=== PATIENT | male | born 1970 | race Two or more races ===

== ENCOUNTER → 2017-06-25 | Outpatient (REF) | payer BC ==
[~2017-06-25] MED LIST: ESCI10TA2 PO; FENO1CAP2 PO; FLOM5CAP PO; NEXI10GR PO; TYLE650T35 PO
== END ==
LOC: M SMT 13:10
PROVIDERS: ATTEND Nurse Practitioner Women's Health
DX: R31.29 Other microscopic hematuria (principal)

== ENCOUNTER → 2017-07-05 | Outpatient (CLI) | payer BC ==
[~2017-07-05] MED LIST changes: +ISOVUE-370 76% 100ML VIAL (Q9967) As Ordered ONE
--- NOTE | 2017-07-05 18:42 | REP ---
CT ABDOMEN AND PELVIS WITH CONTRAST: HISTORY: Microscopic hematuria. CONTRAST: Isovue-370, 100 mL Calcifications are present in the kidneys consistent with nephrolithiasis. A 1.1 cm cyst is present in the right kidney. The liver, gallbladder, pancreas, spleen and adrenal glands are normal in appearance. Diverticula are present in the descending colon. There is no mass, adenopathy or free fluid. The visualized lungs are clear. IMPRESSION: 1. Bilateral nephrolithiasis. 2. 1.1 cm right renal cyst. 3. Diverticulosis. CT pelvis: The prostate gland and urinary bladder are normal in appearance. Diverticula are present in the descending and sigmoid colon. There is no mass, adenopathy or free fluid. Degenerative change is present in the spine. IMPRESSION: Diverticulosis. Signed by Abhi Plaza MD 07/05/2017 07:45 P
== END ==
LOC: M RAD 16:43
PROVIDERS: ATTEND Nurse Practitioner Women's Health
DX: N20.0 Calculus of kidney (principal); N28.1 Cyst of kidney, acquired; K57.30 Diverticulosis of large intestine without perforation or abscess without bleeding
CPT/HCPCS: 74178; Q9967

== ENCOUNTER → 2017-07-11 | Outpatient (REF) | payer BC ==
[~2017-07-11] MED LIST changes: -ISOVUE-370 76% 100ML VIAL (Q9967) As Ordered ONE
== END ==
LOC: M SMT 19:06
PROVIDERS: ATTEND Nurse Practitioner Women's Health
DX: N20.0 Calculus of kidney (principal)

== ENCOUNTER → 2017-07-18 | Outpatient (CLI) | payer BC ==
[2017-07-18 16:19] LABS: MEAN CORPUSCULAR HEMOGLOBIN 31.3 pg (27.0-33.0); MEAN CORPUSCULAR HGB CONC 35.3 g/dl (32.0-36.5); MEAN CORPUSCULAR VOLUME 88.6 fl (80.0-96.0); RED CELL DISTRIBUTION WIDTH 13.1 % (11.5-14.5); WHITE BLOOD COUNT 5.5 K/mm3 (4.0-10.0)
[2017-07-18 16:25] LABS: INR 0.99
[2017-07-18 18:06] LABS: ANION GAP 9 MEQ/L (8-16); BLOOD UREA NITROGEN 18 MG/DL (7-18); CALCIUM LEVEL 8.8 MG/DL (8.5-10.1); CARBON DIOXIDE LEVEL 26 MEQ/L (21-32); CHLORIDE LEVEL 111 MEQ/L (98-107); CREATININE FOR GFR 1.15 MG/DL (0.70-1.30); GLOMERULAR FILTRATION RATE > 60.0 (>60); GLUCOSE, FASTING 77 MG/DL (70-105); POTASSIUM SERUM 4.3 MEQ/L (3.5-5.1); SODIUM LEVEL 146 MEQ/L (136-145)
== END ==
LOC: M LAB 15:53
PROVIDERS: ATTEND Nurse Practitioner Women's Health
DX: N20.0 Calculus of kidney (principal)

== ENCOUNTER → 2017-07-25 | Day surgery (SDC) | payer BC ==
[~2017-07-25] VITALS: Ht 167.6 cm; Wt 97.1 kg
[~2017-07-25] MED LIST changes: +KETAMINE HCL 200 MG/20 ML VIAL As Ordered ONE; +LIDOCAINE 2% INJ 100 MG/5 ML SDV (FOR ANES.) As Ordered ONE; +LR 1,000 ML IV SCH; +MIDAZOLAM INJ 2 MG/2 ML VIAL (J2250) As Ordered ONE; +ONDANSETRON 4MG/2ML VIAL (J2405) IV PRN; +PERCOCET 5MG/325MG TAB PO PRN; +PROPOFOL 200 MG/20 ML VIAL As Ordered ONE; +fentaNYL 100 MCG/2 ML INJECTION (J3010) As Ordered ONE
--- NOTE | 2017-07-25 08:58 | REP ---
SUPINE ABDOMEN: 07/25/2017. Comparison: CT abdomen and pelvis 07/05/2017. Clinical history: Right-sided kidney stone. Findings: The gas pattern is nonspecific. Bones without acute finding. There is minor degenerative change of the hips, right greater than left. There is a very subtle shadow over the interpolar lower pole junction of the right kidney that could represent a small stone. I do not see other densities that might represent the calcification, this would correspond to the location and size of the stone on CT last month. Expected course of the ureters is without any visible calcification. No pelvic calcification. Impression: 1. Questionable 7 mm density overlying the lower pole right kidney in the precise location and size of a stone noted on the CT last month. The tiny punctate calcification in the left kidney on that CT cannot be seen. Signed by Garry Aguilera MD 07/25/2017 10:23 A
--- NOTE | 2017-07-25 11:30 | RO ---
DATE OF PROCEDURE: 07/25/2017 PREPROCEDURE DIAGNOSIS: Right renal stone. POSTPROCEDURE DIAGNOSIS: Right renal stone. PROCEDURE: Right extracorporal shockwave lithotripsy. SURGEON: Dr. Will Thakur. ASSOCIATE OF SCIENCE IN NURSING: None. ANESTHESIA: General. FINDINGS: 7 mm right renal stone in the lower pole of the kidney. COMPARISON: None. ESTIMATED BLOOD LOSS: N/A HISTORY OF PRESENT ILLNESS: This is a 47-year-old male patient with a right 7 mm lower pole kidney stone with right flank pain. The patient has consented for right extracorporal shockwave lithotripsy. DESCRIPTION OF PROCEDURE: With the patient in supine position under MAC anesthesia, the stone was found with ultrasound x-ray. A total of 2500 shockwave lithotripsy impulses at a power of 1-20. The first 100 shockwave lithotripsies was done at a level of 1-5. The following 100 shockwave lithotripsies were on a level of 6-10. The final 100 shockwave lithotripsies was done at a level 11-15 and the final 2200 shockwave lithotripsies was done at a level of 16-20. The patient tolerated the procedure well. He will be going home today with Flomax and Tylenol for pain. Followup in [facility] in about 3 weeks.
== END | disposition home or self-care (01) ==
LOC: M SDC 07:11
PROVIDERS: ATTEND Urology
DX: N20.0 Calculus of kidney (principal); J45.909 Unspecified asthma, uncomplicated; R06.02 Shortness of breath; Z79.899 Other long term (current) drug therapy; Z79.51 Long term (current) use of inhaled steroids
CPT/HCPCS: 50590; 74000; J0690; J2250; J3010

== ENCOUNTER → 2017-08-15 | Outpatient (CLI) | payer BC ==
[~2017-08-15] MED LIST changes: -KETAMINE HCL 200 MG/20 ML VIAL As Ordered ONE; -LIDOCAINE 2% INJ 100 MG/5 ML SDV (FOR ANES.) As Ordered ONE; -LR 1,000 ML IV SCH; -MIDAZOLAM INJ 2 MG/2 ML VIAL (J2250) As Ordered ONE; -ONDANSETRON 4MG/2ML VIAL (J2405) IV PRN; -PERCOCET 5MG/325MG TAB PO PRN; -PROPOFOL 200 MG/20 ML VIAL As Ordered ONE; -fentaNYL 100 MCG/2 ML INJECTION (J3010) As Ordered ONE
--- NOTE | 2017-08-15 09:32 | REP ---
KUB: Single view. History: Kidney stone. Comparison KUB July 15, 2017. Comparison CT study July 05, 2017. Findings: The previously noted intrarenal calculus in the lower pole of the right kidney is not seen today. No definite ureteral stone is seen. The bowel gas pattern is unremarkable. No bony abnormality is seen. Impression: Previously noted intrarenal calculus right kidney no longer apparent. Signed by Christiano Vigil MD 08/15/2017 11:24 A
== END ==
LOC: M SMT 08:25
PROVIDERS: ATTEND Nurse Practitioner Women's Health
DX: N20.0 Calculus of kidney (principal)

== ENCOUNTER → 2018-01-11 | Outpatient (CLI) | payer BC | LOC: M WUC 14:56 | DX: M25.551 Pain in right hip (principal); M25.561 Pain in right knee | CPT/HCPCS: 73502 ==

== ENCOUNTER → 2019-12-24 | Outpatient (CLI) | payer BC ==
[~2019-12-24] MED LIST changes: +FENO135C6 PO; -FENO1CAP2 PO; +FLOM0.4C39 PO; -FLOM5CAP PO; +ROSU10TA6 PO
--- NOTE | 2019-12-24 14:38 | ECGEPIP ---
[facility] Test Date: 2019-12-24 Pat Name: AUGUSTA PARKINSON Department: Room: - Gender: Male Customer Experience Consultant: FIDENCIO : 1970 Requested By: Sean Donahue Order Number: [id number] Reading MD: Marysol Zamora Measurements Intervals [place] Rate: 74 P: 52 NM: 143 QRS: -21 QRSD: 109 T: 34 QT: 355 QTc: 396 Interpretive Statements SINUS RHYTHM LEFT AXIS DEVIATION POSSIBLE OLD IWMI NO PRIOR Electronically Signed on 12-24-2019 14:38:40 EST by Marysol Zamora
--- NOTE | 2019-12-24 14:53 | REP ---
Clinical: Preoperative assessment. Technique: PA and lateral. Findings: The mediastinum and cardiac silhouette are normal. The lung chauhan are clear and without acute consolidation, effusion, or pneumothorax. The skeletal structures are intact and normal. Impression: 1. No acute cardiopulmonary process. Electronically Signed by Luciano Banegas MD 12/24/2019 02:44 P
[2019-12-24 15:17] LABS: HEMATOCRIT 45.5 % (42.0-52.0); HEMOGLOBIN 15.4 g/dl (13.5-17.5); MEAN CORPUSCULAR HEMOGLOBIN 29.7 pg (27.0-33.0); MEAN CORPUSCULAR HGB CONC 33.8 g/dl (32.0-36.5); MEAN CORPUSCULAR VOLUME 87.7 fl (80.0-96.0); PLATELET COUNT, AUTOMATED 233 10^3/uL (150-450); RED BLOOD COUNT 5.19 10^6/uL (4.30-6.10); WHITE BLOOD COUNT 6.9 10^3/uL (4.0-10.0)
[2019-12-24 15:33] LABS: INR 1.12; PROTHROMBIN TIME 14.1 SECONDS (11.8-14.0)
[2019-12-24 15:41] LABS: ALBUMIN 3.9 GM/DL (3.2-5.2); ALT/SGPT 33 U/L (12-78); BILIRUBIN,TOTAL 0.4 MG/DL (0.2-1.0); BLOOD UREA NITROGEN 27 MG/DL (7-18); CALCIUM LEVEL 9.5 MG/DL (8.5-10.1); CARBON DIOXIDE LEVEL 31 MEQ/L (21-32); CHLORIDE LEVEL 102 MEQ/L (98-107); CREATININE FOR GFR 1.19 MG/DL (0.70-1.30); GLOMERULAR FILTRATION RATE > 60.0 (>56); GLUCOSE, FASTING 101 MG/DL (70-100); POTASSIUM SERUM 3.9 MEQ/L (3.5-5.1); SODIUM LEVEL 140 MEQ/L (136-145); TOTAL PROTEIN 7.3 GM/DL (6.4-8.2)
[2019-12-24 15:46] LABS: ERYTHROCYTE SEDIMENTATION RATE 6 mm/hr (0-20)
== END ==
LOC: M LAB 13:59
PROVIDERS: ATTEND Orthopaedic Surgery
DX: Z01.818 Encounter for other preprocedural examination (principal); M16.11 Unilateral primary osteoarthritis, right hip; D86.9 Sarcoidosis, unspecified

== ENCOUNTER 2020-01-04 05:55 | Inpatient (IN) | payer BC ==
--- NOTE | 2019-12-29 17:31 | HPE ---
DATE OF ADMISSION: 01/04/2020 ATTENDING PHYSICIAN: Dr. Sean Donahue CHIEF COMPLAINT: Right hip pain and stiffness. HISTORY: This is a pleasant 49-year-old male patient with progressively worsening right hip pain and stiffness who has failed to improve conservative management. He has elected for surgery for his continued symptoms. He has consented for a right hip total arthroplasty with Dr. Sean Donahue. ALLERGIES: No known drug allergies. CURRENT MEDICATIONS: - fenofibric acid 45 mg one by mouth daily - Nexium 20 mg two by mouth daily - rosuvastatin 5 mg one by mouth daily PAST MEDICAL HISTORY: Hyperlipidemia. FAMILY HISTORY: Mother history of stroke. Father noncontributory. SOCIAL HISTORY: The patient denies tobacco or nicotine use. He occasionally uses alcohol. PAST SURGICAL HISTORY: A biopsy, otherwise noncontributory. REVIEW OF SYSTEMS: He denies fever, chills, chest pain, shortness breath, nausea, vomiting, diarrhea. Denies recent upper respiratory or urinary tract infection symptoms. PHYSICAL EXAMINATION: Height 67 inches, weight 207 pounds, temperature 98.7, blood pressure 119/84, pulse 70, respirations 16. Normocephalic, atraumatic. NECK: Supple and nontender with no lymphadenopathy or jugular venous distention (JVD). S1, S2 auscultated. LUNGS: Clear to auscultation bilaterally. ABDOMEN: Soft and nontender. Right hip with intact range of motion, tenderness to palpation about the groin. Overlying skin is intact. Right lower extremity is well-perfused with intact neurovascular status. LABORATORY DATA: PT 14.1, INR 1.12, BUN 27, creatinine 1.19, white count 6.9, red count 5.19, hemoglobin 15.4, hematocrit 45.5, ESR 6. Chest x-ray: No acute cardiopulmonary process. EKG: Sinus rhythm with left axis deviation, possible old inferior wall HI. IMPRESSION: Symptomatic right hip degenerative changes. PLAN: Right hip total arthroplasty with Dr. Sean Donahue pending medical clearance by Dr. Riley. This was not available on the chart today but the patient reports that he was optimized on 12/24/2019.
[2020-01-04] VITALS (10 sets, daily range): BP systolic 125–149; BP diastolic 86–95; O2SAT 97
[~2020-01-04] VITALS: Ht 170.2 cm; Wt 93.6 kg
[2020-01-04] MEDS ORDERED: ceFAZolin SOD 2 GM in IV 1 EA IV ONE (06:00)
[2020-01-04] MEDS ORDERED: LIDOCAINE 1% MDV 20ML VIAL SQ PRN (06:00)
[2020-01-04] MEDS ORDERED: LR 1,000 ML IV ONE (06:15)
[2020-01-04] MEDS ORDERED: MIDAZOLAM INJ 2 MG/2 ML VIAL (J2250) As Ordered ONE (07:17)
[2020-01-04] MEDS ORDERED: ONDANSETRON 4MG/2ML VIAL (J2405) As Ordered ONE (07:17)
[2020-01-04] MEDS ORDERED: propofoL 200 MG/20 ML VIAL As Ordered ONE ×3 (07:18→09:07)
[2020-01-04] MEDS ORDERED: TRANEXAMIC ACID 100 MG/ML 10ML VIAL As Ordered ONE (07:24)
[2020-01-04] MEDS ORDERED: EPINEPHrine INJ 1 MG/ML 1ML VIAL As Ordered ONE (07:25)
[2020-01-04] MEDS ORDERED: BUPIVACAINE LIPOSOME/PF 1.3% 20ML VIAL (13.3MG/ML)(EXPAREL)(C9290 PER1MG) As Ordered ONE (07:25)
[2020-01-04] MEDS ORDERED: ceFAZolin 1GM INJ (J0690 PER 500MG) As Ordered ONE (07:25)
--- NOTE | 2020-01-04 07:59 | IPN ---
DATE: 01/04/2020 The patient seen and examined. He wishes to go ahead with a right hip arthroplasty. He understands the nature of this, the risks of bleeding, infection, damage to nerves, vessels, persistent pain, wear loosening, dislocation, leg length inequality, blood clots, medical problems, among others. He has elected to go with a ceramic head on a ceramic liner largely due to his relatively young age.
[2020-01-04] MEDS ORDERED: LIDOCAINE 2% INJ 100 MG/5 ML SDV (FOR ANES.) As Ordered ONE (08:06)
[2020-01-04] MEDS ORDERED: fentaNYL 100 MCG/2 ML INJECTION (J3010) As Ordered ONE (08:08)
[2020-01-04] MEDS ORDERED: ACETAMINOPHEN 1000MG 100ML IV BTL (OFIRMEV) (J0131 PER 10MG) As Ordered ONE (08:50)
[2020-01-04] MEDS ORDERED: PHENYLephrine HCL 500 MCG/5 ML (100MCG/ML) SYRINGE (J2370) As Ordered ONE (09:07)
[2020-01-04] MEDS ORDERED: ePHEDrine SULFATE 25 MG/5 ML(5MG/ML) SYRINGE As Ordered ONE (09:07)
[2020-01-04] MEDS ORDERED: PERCOCET 5MG/325MG TAB PO PRN ×2 (09:45→10:46)
[2020-01-04] MEDS ORDERED: ONDANSETRON 4MG/2ML VIAL (J2405) IV PRN ×2 (09:45→10:46)
[2020-01-04] MEDS ORDERED: fentaNYL 100 MCG/2 ML INJECTION (J3010) IV PRN (09:45)
[2020-01-04] MEDS ORDERED: METOCLOPRAMIDE INJ 10MG/2ML VIAL (J2765) IV PRN (09:45)
[2020-01-04] MEDS ORDERED: LR 1,000 ML IV SCH ×2 (09:45→10:46)
--- NOTE | 2020-01-04 10:28 | REP ---
Right hip three views postoperative study: There is a total hip arthroplasty with the components tightly applied and in satisfactory positions alignment. Electronically Signed by Abraham Ordaz MD 01/04/2020 10:19 A
[2020-01-04] MEDS ORDERED: ACETAMINOPHEN TAB 650MG DOSE (2X325MG) PO PRN (10:46)
[2020-01-04] MEDS ORDERED: MORPHINE 2 MG/ML 1ML VIAL (J2270) IV PRN (10:46)
[2020-01-04] MEDS ORDERED: MORPHINE 4 MG/ML 1ML VIAL/SYRINGE (J2270) IV PRN (10:46)
[2020-01-04] MEDS: ROSUVASTATIN 10 MG TAB (CRESTOR) PO SCH (16:27)
[2020-01-04] MEDS: PANTOPRAZOLE 40MG TAB (PROTONIX) PO SCH (16:27)
[2020-01-04] MEDS: ceFAZolin SOD 2 GM in IV 1 EA IV SCH ×2 (16:27→23:51)
[2020-01-04] MEDS: PERCOCET 5MG/325MG TAB PO PRN (21:05)
--- NOTE | 2020-01-04 22:12 | RO ---
DATE OF PROCEDURE: 01/04/2020 PREOPERATIVE DIAGNOSIS: Right hip osteoarthritis. POSTOPERATIVE DIAGNOSIS: Right hip osteoarthritis. PROCEDURE: Right total hip arthroplasty using a DePuy Rosman high offset size 6 stem, 56 cup with a 36 +5 ceramic head and ceramic liner. SURGEON: Dr. Sean Donahue TOWER [employer]FFIC CONTROL SPECIALIST: Casey Kirkpatrick ANESTHESIA: Spinal ESTIMATED BLOOD LOSS: 300 mL. COMPLICATIONS: None. INDICATIONS: A 49-year-old who wanted to proceed with a hip replacement. Understood the nature and risks associated with it. DESCRIPTION OF PROCEDURE: The patient was taken to the operating room, placed in the supine position after spinal anesthesia was induced. He was then turned to the left lateral decubitus position on a Roy positioner. All areas were padded appropriately. The right hip was prepped and draped in the usual sterile fashion. A time-out was performed. I then created a longitudinal incision over the lateral aspect of the hip and sharp dissection was carried down through subcutaneous tissue, controlled hemostasis with the cautery. Incised the fascia britney and then divided the anterior 40% or so of the abductor off of the hip as we gradually externally rotated the femur. The labrum was split. I was able to dislocate the hip after freeing up the soft tissue proximally. I then used the canal initiating reamer, the canal finding reamer, the lateralizing reamer and then was able to ream up to a size 6, which had good bony purchase and a good fit. The neck cut was then made at about three-quarters of a fingerbreadth up from the lesser trochanter. We then directed our attention to the acetabulum. Anterior-posterior retractors were placed, and the soft tissue was removed from around the acetabulum. It was evident that I had to deepen the acetabulum. He was relatively shallow. I sequentially reamed up to a size 55 reamer, which had good concentric reaming, good bleeding bone. Controlled hemostasis with the cautery. I then curetted and bone grafted a cyst in the superior aspect of the acetabulum. Irrigated prior to that, irrigated again keeping the bone graft in place with a finger and then impacted in the 56 cup in appropriate amount of anteversion, horizontal tilt. We then selected the 36 x 56 ceramic liner. This was impacted in place after it was carefully aligned. We then directed attention back to the femur and sequentially broached up to a size 6. I used a calcar planer. Excellent fit and fill was noted. I then tried various offset and neck lengths and decided on the high offset +5, which was the most appropriate soft tissue tension, was very stable in extension external rotation and flexion internal rotation. There was minimal shuck in full extension. I was happy with the soft tissues. I then removed the trial components, irrigated the canal and then impacted in the actual size 6 high offset Rosman stem, made sure it was well seated. We then dried the Barba taper and impacted on the ceramic 36 ball, +5. Reduced the hip, put the hip through a range of motion, again very pleased with the range of motion and soft tissue tension and stability of this hip. Copious irrigation was performed. The TXA was placed deep in the tissues. The Exparel was placed deep in the tissues, and I repaired the minimus layer and abductor with #1 Vicryl suture and irrigated periodically. Excellent closure was noted. I then closed the fascia britney with #1 Vicryl suture and Stratafix was used to close the remaining fascia britney. I then irrigated, closed the subcu with #2-0 Vicryl, and the skin with sheyla. Sterile dressing was applied. The patient was taken to recovery room in stable condition. There were no known complications. The plan will be routine postop. The assistant maintenance manager was holding retractors and reducing and dislocating the hip and assisting in wound closure.
[2020-01-05 02:00] VITALS: BP 120/82
[2020-01-05] MEDS: PERCOCET 5MG/325MG TAB PO PRN (03:11)
[2020-01-05] MEDS ORDERED: PERCOCET 5MG/325MG TAB PO PRN ×2 (06:15)
[2020-01-05] MEDS ORDERED: XARE10TA PO (06:45)
[2020-01-05] MEDS ORDERED: PERC5TAB12 PO (06:45)
[2020-01-05 08:00] VITALS: BP 113/61
[2020-01-05 08:02] VITALS: O2SAT 97
[2020-01-05] MEDS ORDERED: FENOFIBRATE 145 MG TAB (TRICOR) PO SCH (09:00)
[2020-01-05] MEDS ORDERED: MIRALAX *UNIT DOSE* 17GM PACKET PO SCH (09:00)
[2020-01-05] MEDS ORDERED: MOM 30ML SUSPENSION UDC PO SCH (09:00)
[2020-01-05 09:21] VITALS: BP 126/86
[2020-01-05] MEDS: ROSUVASTATIN 10 MG TAB (CRESTOR) PO SCH (09:29)
[2020-01-05] MEDS: PANTOPRAZOLE 40MG TAB (PROTONIX) PO SCH (09:29)
[2020-01-05] MEDS ORDERED: RIVAROXABAN 10 MG TAB (XARELTO) PO SCH (18:00)
--- NOTE | 2020-01-07 09:27 | DSES ---
DATE OF ADMISSION: 01/04/2020 DATE OF DISCHARGE: 01/05/2020 HISTORY OF PRESENT ILLNESS: This is a pleasant male with continuing symptomatic right hip osteoarthritis. He consented for a right total hip arthroplasty per Dr. Sean Donahue. Medical optimization was achieved. X-rays were consistent with osteoarthritis. OPERATION PERFORMED: Right total hip arthroplasty. HOSPITAL COURSE: The patient uneventfully underwent right total hip arthroplasty under general anesthesia and was returned to recovery comfortable. Our hospital team felt the patient was ready for discharge on 01/05/2020 with the following instructions: diet as regular, Percocet as needed pain, anticoagulation per protocol, weightbearing as tolerated with walker, thromboembolic deterrent stockings (TEDS) times 30 days, Optifoam dressing change in 4 days' time, with followup at ortho group 2 weeks out for wound check, staple removal. The patient is encouraged to contact our office with bleeding, drainage, increased pain, numbness, tingling, fever greater than 101 or any further concerns. CHRISSY
== END 2020-01-05 12:25 | disposition home or self-care (01) | DRG 301 ==
LOC: M OR 05:55 → M MS5PR 14:40
PROVIDERS: ADMIT Orthopaedic Surgery; ATTEND Orthopaedic Surgery
PROC: 0SR904A Replacement of Right Hip Joint with Ceramic on Polyethylene Synthetic Substitute, Uncemented, Open Approach (ICD-10-PCS; principal; 2020-01-04 07:30)
DX: M16.11 Unilateral primary osteoarthritis, right hip (principal); Z79.899 Other long term (current) drug therapy

== ENCOUNTER → 2022-11-06 | Outpatient (CLI) | payer BC ==
[~2022-11-06] MED LIST changes: +ACET650T61 PO; +ESCI10TA16 PO; -ESCI10TA2 PO; +NEXI20CA PO; +PERC5TAB12 PO; -TYLE650T35 PO; +XARE10TA PO
== END ==
LOC: M LABSMTC 08:52
PROVIDERS: ATTEND Anesthesiology
DX: Z01.818 Encounter for other preprocedural examination (principal)

== ENCOUNTER → 2022-12-09 | Outpatient (CLI) | payer BC | LOC: M LABSMTC 11:17 | PROVIDERS: ATTEND Anesthesiology | DX: Z01.812 Encounter for preprocedural laboratory examination (principal); Z11.52 Encounter for screening for COVID-19 ==

== ENCOUNTER 2022-12-12 08:23 | Day surgery (SDC) | payer BC ==
[~2022-12-12] VITALS: Ht 165.1 cm; Wt 98.9 kg
[~2022-12-12 08:23] MED LIST changes: +NS 1,000 ML IV ONE
[2022-12-12] MEDS ORDERED: propofoL 200 MG/20 ML VIAL As Ordered ONE ×2 (09:40→09:47)
[2022-12-12] MEDS ORDERED: LIDOCAINE 2% 100MG/5ML SDV (FOR ANES.) As Ordered ONE (09:40)
[2022-12-12 10:35] VITALS: BP 149/94
== END 2022-12-12 10:40 | disposition home or self-care (01) ==
LOC: M OPP 08:23
PROVIDERS: ATTEND Surgery
DX: D12.0 Benign neoplasm of cecum (principal); D12.2 Benign neoplasm of ascending colon; K64.0 First degree hemorrhoids; K57.30 Diverticulosis of large intestine without perforation or abscess without bleeding; R19.5 Other fecal abnormalities; Z79.82 Long term (current) use of aspirin; Z79.899 Other long term (current) drug therapy; E78.5 Hyperlipidemia, unspecified; D86.9 Sarcoidosis, unspecified

== ENCOUNTER → 2024-04-27 | Outpatient (CLI) | payer BC ==
[~2024-04-27] MED LIST changes: -NS 1,000 ML IV ONE; -ROSU10TA6 PO; +ROSU10TA61 PO
[2024-04-27 10:49] LABS: HEMATOCRIT 46.7 % (42.0-52.0); HEMOGLOBIN 15.2 g/dl (13.5-17.5); MEAN CORPUSCULAR HEMOGLOBIN 28.5 pg (27.0-33.0); MEAN CORPUSCULAR HGB CONC 32.5 g/dl (32.0-36.5); MEAN CORPUSCULAR VOLUME 87.6 fl (80.0-96.0); PLATELET COUNT, AUTOMATED 201 10^3/uL (150-450); RED BLOOD COUNT 5.33 10^6/uL (4.30-6.10)
[2024-04-27 11:17] LABS: ALBUMIN 3.6 G/DL (3.2-5.2); ALKALINE PHOSPHATASE 105 U/L (46-116); ALT/SGPT 35 U/L (7.0-40); AST/SGOT 19 U/L (<34); BILIRUBIN,TOTAL 0.3 MG/DL (0.3-1.2); BLOOD UREA NITROGEN 24 MG/DL (9-23); CALCIUM LEVEL 9.2 MG/DL (8.5-10.1); CARBON DIOXIDE LEVEL 27 MMOL/L (20-31); CHLORIDE LEVEL 110 MMOL/L (98-107); CHOLESTEROL LEVEL 156 MG/DL (<200); CHOLESTEROL RISK RATIO 4.38 (<5); CREATININE FOR GFR 1.15 MG/DL (0.70-1.30); GLOMERULAR FILTRATION RATE > 60.0 (>56); GLUCOSE, FASTING 100 MG/DL (60-100); HDL CHOLESTEROL 35.6 MG/DL (>40); LDL CHOLESTEROL 62.8 MG/DL (<100); NON-HDL-C 120.4 MG/DL; POTASSIUM SERUM 3.9 MMOL/L (3.5-5.1); SODIUM LEVEL 142 MMOL/L (136-145); TOTAL PROTEIN 6.6 G/DL (5.7-8.2); TRIGLYCERIDES LEVEL 288 MG/DL (<150)
== END ==
LOC: M WUC 08:13
PROVIDERS: ATTEND Physician Assistant
DX: E78.5 Hyperlipidemia, unspecified (principal); D86.0 Sarcoidosis of lung; R35.1 Nocturia